=== PATIENT | female | born 1975 | race Two or more races ===

== ENCOUNTER 2019-01-07 17:06 | Emergency (ER) | payer SELFPAY ==
[~2019-01-07] VITALS: Ht 165.1 cm; Wt 63.5 kg
[2019-01-07 17:25] VITALS: BP 158/91
--- NOTE | 2019-01-07 18:49 | NUR ---
ED Nurse Note:blood and urine sent to labs x-ray ansd EKG done
--- NOTE | 2019-01-07 19:06 | NUR ---
ED Nurse Note:pt. went tto CT scan
[2019-01-07 19:35] LABS: APPEARANCE,URINE CLEAR; BILIRUBIN, URINE NEGATIVE (NEGATIVE); COLOR,URINE PALE YELLOW; GLUCOSE, URINE (UA) 4+ (NEGATIVE); KETONES,URINE NEGATIVE (NEGATIVE); LEUKOCYTE ESTERASE ,URINE NEGATIVE (NEGATIVE); NITRITE,URINE NEGATIVE (NEGATIVE); PH,URINE 6 (4.5-8.0); PROTEIN,URINE NEGATIVE (NEGATIVE); UROBILINOGEN,URINE NORMAL MG/DL (0.0-1.0)
[2019-01-07 19:39] LABS: ANION GAP 10 mmol/L (5-15); BLOOD UREA NITROGEN 9 mg/dL (7-18); CALCIUM 8.9 MG/DL (8.5-10.1); CARBON DIOXIDE 27 MMOL/L (21-32); CHLORIDE 101 MMOL/L (98-107); CREATININE 0.6 MG/DL (0.55-1.30); POTASSIUM 3.8 MMOL/L (3.5-5.1); SODIUM 138 MMOL/L (136-145)
[2019-01-07 19:40] LABS: BASOPHILS % (AUTO) 0.9 % (0.0-2.0); EOSINOPHILS % (AUTO) 1.7 % (0.0-3.0); HEMATOCRIT 43.2 % (37.0-47.0); HEMOGLOBIN 15.1 G/DL (12.0-16.0); LYMPHOCYTES % (AUTO) 28.4 % (20.0-45.0); MEAN CORPUSCULAR VOLUME 93 FL (80-99); MONOCYTES % (AUTO) 7.9 % (1.0-10.0); NEUTROPHILS % (AUTO) 61.1 % (45.0-75.0); PLATELET COUNT 248 K/UL (150-450); RED BLOOD COUNT 4.64 M/UL (4.20-5.40); RED CELL DISTRIBUTION WIDTH 10.7 % (11.6-14.8); WHITE BLOOD COUNT 5.7 K/UL (4.8-10.8)
[2019-01-07 19:43] LABS: ALANINE AMINOTRANSFERASE 62 U/L (12-78); ALBUMIN 3.7 G/DL (3.4-5.0); ALBUMIN/GLOBULIN RATIO 0.9 (1.0-2.7); ALKALINE PHOSPHATASE 149 U/L (46-116); ASPARTATE AMINO TRANSFERASE 28 U/L (15-37); BILIRUBIN,TOTAL 0.6 MG/DL (0.2-1.0)
--- NOTE | 2019-01-07 19:52 | Diagnostic Imaging Report ---
Indication: Dizziness Technique: Continuous helical CT scanning of the head was performed utilizing automated exposure control without intravenous contrast material. Axial and coronal reconstructions were obtained. Comparison: None CT dose: Total DLP 1370.4 mGycm; CTDI vol 62.7 mGy Findings: There is no acute intracranial hemorrhage, mass effect or cortical edema. There is no shift of midline structures. Sanchez-white differentiation appears preserved. Some prominent calcifications noted along the anterior falx without associated significant mass effect. The ventricles, cisterns and sulci are within normal limits for age. Visualized mastoid air cells and paranasal sinuses are unremarkable. No focal lesions of the bony calvarium or soft tissues of the scalp are seen. IMPRESSION: No evidence of acute intracranial hemorrhage, mass effect or cortical edema. MRI may be obtained for more sensitive evaluation as clinically indicated. The CT scanner at [facility] is accredited by the [employer] and the scans are performed using protocols designed to limit radiation exposure to as low as reasonably achievable to attain images of sufficient resolution adequate for diagnostic evaluation. Normal
--- NOTE | 2019-01-07 19:56 | Emergency Room Report ---
History of Present Illness General Chief Complaint: Earache Source: Patient Present Illness HPI 43-year-old Cuban-speaking female with history of type 2 diabetes and hypertension reporting that is controlled with metformin unknown blood pressure medication here with her sister complaining of 1 day of hearing loss in both ears. Patient denies any tinnitus, vertigo, ear pain and ear discharge. Denies any recent travel and going to [facility]. Reports that 2 weeks ago she started feeling dizzy however denies syncope and headache. Complains of intermittent chest pain and palpitation however denies blurry vision, abdominal pain, nausea vomiting. Patient reports that she is compliant with taking her metformin however has not seen his primary care physician in many months. Patient sitting comfortably with stable vital signs blood pressure was slightly elevated upon arrival however subsided. Denies any injury to the ears, recent URI symptoms. Has not taken medication for symptom relief. Denies unilateral or generalized weakness. No motor or sensory deficits noted. Scant amount of cerumen is noted in bilateral ears. According to sister patient started having hearing loss in right ear 3 days ago with some buzzing in the ear and now has been experiencing the same in the left ear. Allergies: Coded Allergies: No Known Allergies (Unverified , 01/07/19) Patient History Past Medical History: see triage record Past Surgical History: unable to obtain Pertinent Family History: none Last Menstrual Period: n/a Now: No Immunizations: UTD Reviewed Nursing Documentation: PMH: Agreed; PSxH: Agreed Nursing Documentation-PMH Past Medical History: No History, Except For Hx Hypertension: Yes Hx Diabetes: Yes Review of Systems All Other Systems: negative except mentioned in HPI Physical Exam Vital Signs Date Time Temp Pulse Resp B/P (MAP) Pulse Ox O2 Delivery O2 Flow Rate FiO2 01/07/19 17:18 97.7 77 18 158/91 (113) 96 Room Air Sp02 EP Interpretation: reviewed, normal General Appearance: no apparent distress, alert, GCS 15, non-toxic Head: normocephalic, atraumatic Eyes: bilateral eye normal inspection, bilateral eye PERRL ENT: normal pharynx, no angioedema, normal voice, other - Unable to visualize tympanic membrane due to cerumen impaction bilateral ears Neck: full range of motion, supple/symm/no masses Respiratory: chest non-tender, lungs clear, normal breath sounds, no wheezing, speaking full sentences Cardiovascular #1: regular rate, rhythm, no edema Gastrointestinal: normal bowel sounds, non tender, soft Genitourinary: no CVA tenderness Musculoskeletal: normal inspection, back normal, digits/nails normal Neurologic: alert, oriented x3, responsive, motor strength/tone normal, sensory intact, speech normal Psychiatric: normal inspection, judgement/insight normal Skin: no rash Lymphatic: normal inspection, no adenopathy Medical Decision Making PA Attestation All my diagnosis and treatment plans were reviewed ad discussed with my supervising physician Dr. Box Diagnostic Impression: Primary Impression: Cerumen impaction Additional Impression: Dizziness ER Course 43-year-old Cuban-speaking female with history of type 2 diabetes and hypertension reporting that is controlled with metformin unknown blood pressure medication here with her sister complaining of 1 day of hearing loss in both ears. Patient denies any tinnitus, vertigo, ear pain and ear discharge. Denies any recent travel and going to [place]. Reports that 2 weeks ago she started feeling dizzy however denies syncope and headache. Complains of intermittent chest pain and palpitation however denies blurry vision, abdominal pain, nausea vomiting. Patient reports that she is compliant with taking her metformin however has not seen his primary care physician in many months. Patient sitting comfortably with stable vital signs blood pressure was slightly elevated upon arrival however subsided. Denies any injury to the ears, recent URI symptoms. Has not taken medication for symptom relief. Denies unilateral or generalized weakness. No motor or sensory deficits noted. Scant amount of cerumen is noted in bilateral ears. According to sister patient started having hearing loss in right ear 3 days ago with some buzzing in the ear and now has been experiencing the same in the left ear. Ddx considered but are not limited to: Dizziness due to alcohol intoxication, dizziness unspecified, dizziness due to head trauma, dizziness secondary to cardiac reasons, dizziness secondary to TIA, Vital signs: are WNL, pt. is afebrile H&PE are most consistent with: Dizziness unspecified non-presumed cardiac and non-stroke related, cerumen impaction ORDERS: CBC, CMP, UA, troponin, EKG, chest x-ray, Debrox ER intervention: none DISCHARGE: At this time pt. is stable for d/c to home. Will provide printed patient care instructions, and any necessary prescriptions. Care plan and follow up instructions have been discussed with the patient prior to discharge. Follow-up with your primary care provider for referral to ear nose throat may be needed, also I advised that you follow-up with a neurologist if your symptoms continue EKG Diagnostic Results Rate: normal Rhythm: NSR ST Segments: no acute changes Chest X-Ray Diagnostic Results Chest X-Ray Diagnostic Results : Chest X-Ray Ordered: Yes # of Views/Limited/Complete: 1 View Indication: Chest Pain EP Interpretation: Yes PA Xray: Interpretation reviewed, by supervising MD, and agrees with findings. Interpretation: no consolidation, no effusion, no pneumothorax Impression: No acute disease Electronically Signed by: Cirilo Mason PA-C CT/MRI/US Diagnostic Results CT/MRI/US Diagnostic Results : Imaging Test Ordered: Head CT no contrast Impression No intracranial hemorrhage, no skull fracture Last Vital Signs Date Time Temp Pulse Resp B/P (MAP) Pulse Ox O2 Delivery O2 Flow Rate FiO2 01/07/19 17:25 97.7 78 18 158/91 96 Room Air Disposition: HOME, SELF-CARE Condition: Stable Scripts Meclizine Hcl* (MECLIZINE*) 25 Mg Tablet 25 MG ORAL THREE TIMES A DAY, #10 TAB Prov: Cirilo Infante 01/07/19 Carbamide Peroxide (DEBROX) 15 Ml Drops 10 DROP BOTH EARS TWICE A DAY for 4 Days, #20 ML 0 Refills Prov: Cirilo Infante 01/07/19 Referrals: NOT CHOSEN IPA/,REFERRING (PCP) Patient Instructions: Cerumen Impaction, Dizziness, [id number] Additional Instructions: Follow-up with your primary care provider regarding her diabetes, at this time no intracranial bleed is noted and your high blood pressure is not contributing to your symptoms. Follow-up with a neurologist. Your loss of hearing is secondary to cerumen impaction use Debrox prescribed and follow-up with your primary care provider for ear lavage. Cirilo Infante Jan 07, 2019 19:56
[2019-01-07] MEDS ORDERED: MECLIZINE HCL25 MG ORAL (19:57)
[2019-01-07] MEDS ORDERED: DEBROX15 M1 BOTH EARS (19:57)
--- NOTE | 2019-01-07 20:06 | NUR ---
ED Nurse Note: Patient is cleared for discharge by ER provider, verbalized understanding of discharge instructions. IV removed, ID band removed. Patient departed with all belongiings accompanied by her family member.
[2019-01-07 20:07] VITALS: BP 158/91
--- NOTE | 2019-01-08 09:03 | Diagnostic Imaging Report ---
Indication: Chest pain Technique: XRAY Chest 1v Comparison: None Findings: Limited exam. Low lung volumes. Heart size and mediastinal contours are within normal limits for AP technique and low lung volumes. There is no definite focal airspace consolidation, pneumothorax or pleural effusion. Osseous structures demonstrate no acute abnormality. Impression: Limited exam with low lung volumes. No definite radiographic evidence of acute cardiopulmonary disease.
--- NOTE | 2019-01-11 12:06 | Cardiology Report ---
APPROVED REPORT EKG Measurement Heart [id number] Normal sinus rhythm Possible Left atrial enlargement Anterior infarct, age undetermined Abnormal ECG
== END 2019-01-07 20:08 | disposition home or self-care (01) ==
LOC: EMR 18:00
DX: H61.23 Impacted cerumen, bilateral (principal); R42 Dizziness and giddiness; I10 Essential (primary) hypertension; E11.9 Type 2 diabetes mellitus without complications; R07.9 Chest pain, unspecified; Z79.84 Long term (current) use of oral hypoglycemic drugs; R00.2 Palpitations
CPT/HCPCS: 36415; 70450; 71045; 80053; 81001; 84484; 85025; 87086; 93005; 99284